=== PATIENT | male | born 1960 | race Caucasian/White ===

== ENCOUNTER 2017-07-07 11:01 | Emergency (ER) | payer BC ==
--- NOTE | 2017-07-07 12:18 | UC ---
Skin Complaint HPI - HPI Summary HPI Summary: 57 yo male presents with red spot and swelling to right cheek. First noticed yesterday and seems a little more red today. Denies fever/chills, vision changes , recent illness. - History of Current Complaint Chief Complaint: UCSkin Time Seen by Provider: 07/07/17 12:18 Stated Complaint: FACIAL SWELLING Hx Obtained From: Patient Onset/Duration: Sudden Onset Timing: Constant Onset Severity: Mild Current Severity: Mild Pain Intensity: 2 Pain Scale Used: 0-10 Numeric - Allergy/Home Medications Allergies/Adverse Reactions: Allergies Allergy/AdvReac Type Severity Reaction Status Date / Time No Known Allergies Allergy Verified 07/07/17 12:14 Home Medications: Home Medications Ibuprofen TAB* [Advil TAB*] 400 mg PO Q6H PRN 07/07/17 [History Confirmed ] Meclizine HCl [Bonine] 25 mg PO ONCE PRN 07/07/17 [History Confirmed 07/07/17] Multivitamin [Multiple Vitamins] 1 tab PO DAILY 07/07/17 [History Confirmed ] [place]-3 Fatty Acids/Fish Oil [Fish Oil 1,000 mg Softgel] 1 each PO BID 07/07/17 [History Confirmed 07/07/17] Review of Systems Constitutional: Negative Skin: Other - Abscess right maxillary face Eyes: Negative ENT: Negative Respiratory: Negative Cardiovascular: Negative Neurovascular: Negative Neurological: Negative Psychological: Negative All Other Systems Reviewed And Are Negative: Yes PMH/Surg Hx/FS Hx/Imm Hx Previously Healthy: Yes Endocrine History: Dyslipidemia - Surgical History Surgical History: Yes Surgery Procedure, Year, and Place: L & R ACL on knees, deviated septum repair - Family History Known Family History: Positive: None - Social History Occupation: Employed Full-time Lives: With Family Alcohol Use: Daily Alcohol Amount: wine Substance Use Type: None Smoking Status (MU): Never Smoked Tobacco Physical Exam - Summary Physical Exam Summary: GENERAL: NAD. WDWN. No pain distress. SKIN: Skin overlying right maxillary: 5mm area of mild erythema and induration. Mild TTP. Mild edema about the area. No streaking, orbital encroachment, drainage, or bleeding. HEENT: Head: AT/NC Eyes: EOM intact. Conjunctiva clear without inflammation or discharge. Ears: Hearing grossly normal. TMs intact, no bulging, erythema, or edema. Nose: Nasal mucosa pink and moist. NTTP maxillary and frontal sinus. Throat: Posterior oropharynx without exudates, erythema, or tonsillar enlargement. Uvula midline. NECK: Supple. Nontender. No lymphadenopathy. CHEST: CTAB. No r/r/w. No accessory muscle use. Breathing comfortably and in no distress. CV: RRR. Without m/r/g. Pulses intact. Brisk cap refill. NEURO: Alert. CN II-XII grossly intact. PSYCH: Age appropriate behavior. Triage Information Reviewed: Yes Vital Signs: Initial Vital Signs Temp 98.4 F 07/07/17 12:08 Pulse 75 07/07/17 12:08 Resp 14 07/07/17 12:08 BP 145/85 07/07/17 12:08 Pulse Ox 98 07/07/17 12:08 Course/Dx - Course Course Of Treatment: Skin abscess - given location (face) will rx for antibiotics and hold I&D for now. Pt made aware that if antibiotics do not resolve this - he may need it incised and drained. - Diagnoses Provider Diagnoses: Skin abscess Discharge - Sign-Out/Discharge Documenting (check all that apply): Discharge/Admit/Transfer - Discharge Plan Condition: Stable Disposition: HOME Prescriptions: Sulfamethox/Trimethoprim DS* [Bactrim DS 800/160 TAB*] 1 tab PO BID #10 tab Patient Education Materials: Abscess (ED) Referrals: Non Staff,Doctor [Primary Care Provider] - Additional Instructions: If you develop a fever, shortness of breath, chest pain, new or worsening symptoms - please call your PCP or go to the ED. Your blood pressure was high at todays visit. Please see your primary provider within 4 weeks for recheck and re-evaluation. 1) Apply ice to the area to reduce pain and swelling - Billing Disposition and Condition Condition: STABLE Disposition: HOME
[2017-07-07 12:36] VITALS: BP 122/82
== END 2017-07-07 12:36 | disposition home or self-care (01) ==
LOC: UCCORT 11:01
DX: L02.01 Cutaneous abscess of face (principal)
CPT/HCPCS: 99202; G0463